=== PATIENT | male | born 1970 | race African-American/Black ===

== ENCOUNTER 2022-07-27 18:18 | Emergency (ER) | payer MEDICAID ==
[~2022-07-27] VITALS: Ht 188 cm; Wt 100.0 kg
[2022-07-27] MEDS ORDERED: LOSA1TAB40 PO (18:31)
[2022-07-27] MEDS ORDERED: AMLO5TAB88 PO (18:31)
[2022-07-27] MEDS ORDERED: LISI-186 PO (18:31)
[2022-07-27] MEDS ORDERED: METO-396 PO (18:31)
[2022-07-27] MEDS ORDERED: ALBU6.7H3 IH (18:32)
[2022-07-27] MEDS ORDERED: KETOROLAC 60MG/2ML VIAL IM ONE (22:45)
[2022-07-28] MEDS ORDERED: HYDR-4001 PO (00:10)
[2022-07-28] MEDS ORDERED: KETOROLAC 60MG/2ML VIAL IM NR (00:30)
[2022-07-28 00:43] VITALS: BP 134/75
== END 2022-07-28 01:10 | disposition home or self-care (01) ==
LOC: ER 18:18
DX: S82.832A Other fracture of upper and lower end of left fibula, initial encounter for closed fracture (principal); I10 Essential (primary) hypertension; W01.0XXA Fall on same level from slipping, tripping and stumbling without subsequent striking against object, initial encounter; Y93.89 Activity, other specified; Y92.018 Other place in single-family (private) house as the place of occurrence of the external cause
CPT/HCPCS: 29515; 73610; 73630; 96372; 99284; J1885; Z7610